=== PATIENT | male | born 1950 | race Caucasian/White ===

== ENCOUNTER 2016-09-07 10:05 | Outpatient (CLI) | payer OTHER ==
--- NOTE | 2016-09-07 14:36 | DIAGNOSTIC IMAGING REPORT ---
PROCEDURE: XR FOOT 3 VIEWS - LEFT INDICATION: RECENT TRAUMA LEFT 2ND TOE, NON HEALING DIABETIC WOUNDS TECHNIQUE: Three views. COMPARISON: None. FINDINGS: Osseous structures and joint spaces are normal. IMPRESSION: 1. Normal left foot.
--- NOTE | 2016-09-07 16:10 | DIAGNOSTIC IMAGING REPORT ---
PROCEDURE: US VENOUS - BILATERAL EXT INDICATION: Nonhealing was bilaterally, initial encounter TECHNIQUE: Duplex sonography of the deep and superficial venous system in both lower extremities was performed. Compression and augmentation techniques were used. The patient was scanned in the upright position. Surveillance of the venous system during Valsalva maneuver when appropriate was performed. COMPARISON: None. FINDINGS: There is venous reflux in the right superficial femoral vein (1.2 seconds, diameter 9 mm). Right greater saphenous vein is competent and measures 7 mm proximally, 5 mm mid and 4 mm distally. There is venous insufficiency in the left mid superficial femoral vein (1.1 seconds, diameter 10 mm) and mid greater saphenous vein (1 second, diameter 5 mm. Left greater saphenous vein measures 8 mm proximally. IMPRESSION: 1. Venous insufficiency of the right superficial femoral vein proximally 2. Venous insufficiency of the mid left superficial femoral and greater saphenous veins.
--- NOTE | 2016-09-07 16:26 | DIAGNOSTIC IMAGING REPORT ---
PROCEDURE: US ART LOWER EXT WITH JESSENIA-B/L INDICATION: NON HEALING WOUNDS TECHNIQUE: Preexercise ABIs were performed. The patient did not exercise to limited range of motion. Color Doppler duplex imaging of the lower extremities was performed. COMPARISON: None. FINDINGS: Cardiac arrhythmia. RIGHT LOWER EXTREMITY: ABIs: Resting ABIs: Posterior tibial and dorsalis pedis 1.1. VESSELS: Mild atherosclerosis. Normal triphasic throughout the right lower extremity except for monophasic wave form of the profunda femoris and biphasic wave form of the posterior tibial artery. RIGHT LOWER EXTREMITY PEAK SYSTOLIC VELOCITIES: External iliac: 62 cm/second. Common femoral artery: 67 cm/second. Profunda femoral artery: 22 cm/second. Proximal superficial femoral artery: 91 cm/second. Mid superficial femoral artery: 58 cm/second. Distal superficial femoral artery: 56 cm/second. Popliteal artery: 63 cm/second. Proximal posterior tibial artery: 59 cm/second. Proximal anterior tibial artery: 103 cm/second. Peroneal artery: 36 cm/second. Distal posterior tibial artery: 32 cm/second. Dorsalis pedis artery: 53 cm/second. LEFT LOWER EXTREMITY: ABIs: Resting ABIs: Posterior tibial and dorsalis pedis 1.1. VESSELS: Mild atherosclerosis. Normal triphasic wave form throughout the left lower extremity except for biphasic wave form of the profunda femoris and proximal SFA. LEFT LOWER EXTREMITY PEAK SYSTOLIC VELOCITIES: External iliac: 109 cm/second. Common femoral artery: 90 cm/second. Profunda femoral artery: 94 cm/second. Proximal superficial femoral artery: 77 cm/second. Mid superficial femoral artery: 76 cm/second. Distal superficial femoral artery: 53 cm/second. Popliteal artery: 68 cm/second. Proximal posterior tibial artery: 109 cm/second. Proximal anterior tibial artery: 63 cm/second. Peroneal artery: 28 cm/second. Distal posterior tibial artery: 77 cm/second. Dorsalis pedis artery: 69 cm/second. IMPRESSION: 1. Cardiac arrhythmia. 2. Right lower extremity: No evidence of resting arterial insufficiency. Mild atherosclerosis without focal stenosis. 3. Left lower extremity: No evidence of resting arterial insufficiency. Mild atherosclerosis without focal stenosis
== END 2016-09-07 23:00 ==
LOC: US SRH 10:05
DX: L97.929 Non-pressure chronic ulcer of unspecified part of left lower leg with unspecified severity (principal); L97.919 Non-pressure chronic ulcer of unspecified part of right lower leg with unspecified severity; I87.2 Venous insufficiency (chronic) (peripheral); I49.9 Cardiac arrhythmia, unspecified

== ENCOUNTER 2017-01-30 08:00 | Emergency (ER) | payer OTHER ==
--- NOTE | 2017-01-30 09:51 | DIAGNOSTIC IMAGING REPORT ---
PROCEDURE: CT HEAD WITHOUT CONTRAST INDICATION: TRAUMA/INJURY TECHNIQUE: Noncontrast axial images with sagittal and coronal reformations. COMPARISON: None. 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 Normal ventricular system and sulci. No evidence of acute intracranial process. Visualized mastoids and sinuses are clear. IMPRESSION: 1. Negative non-enhanced head CT. 2. Findings discussed with Dr. Fracnisco at 09:22 a.m.[facility] Time
--- NOTE | 2017-01-30 09:51 | DIAGNOSTIC IMAGING REPORT ---
PROCEDURE: CT HEAD WITHOUT CONTRAST INDICATION: TRAUMA/INJURY TECHNIQUE: Noncontrast axial images with sagittal and coronal reformations. COMPARISON: None. 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 Normal ventricular system and sulci. No evidence of acute intracranial process. Visualized mastoids and sinuses are clear. IMPRESSION: 1. Negative non-enhanced head CT. 2. Findings discussed with Dr. Francisco at 09:22 a.m.[facility] Time
--- NOTE | 2017-01-30 11:56 | ED NURSING NOTES ---
Clinical Report - Nurses [facility] [address] [place] [address] 01/30/2017 8:01 Patient: MORGAN LOO TRIAGE Triage time 08:04. Acuity: LEVEL 3. Chief Complaint: FALL OFF A CHAIR, onto a hard surface and landed on their knees (Pt denies hitting head and LOC.). Alert. No acute distress. ( PER: EMS. Pt called due to falling from his bed and needed help back up. Pt. states he was down for a few hours. He states his knee "gives out" and that is what happened today. His BS was 73 per EMS on arrival. Pt. given juice and PO glucose. Recheck BS 121 then dropped to 87 so EMS wanted pt to be eval in ED.). SEPSIS SCREEN: Sepsis Screen. Negative (no infection suspected/documented). SARA COMA SCORE: [place] Coma Scale: 15- eyes open spontaneously (4); best verbal response- oriented x 4 (5); best motor response- obeys commands (6). --08:18 Mima Morrison R.N. 08:04 01/30/17. BP: 114/108. HR: 76. RR: 18. O2 saturation: 100%. Pain level now 3/10. --08:18 Mima Morrison R.N. ( Pt. 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 --08:34 Mima Morrison R.N. Weight: 86.1 kg stated. Height/Length: 69 inches Per Patient. BMI: 28.1. --08:10 Mima Morrison R.N. Medications ASA Oral 81 mg, daily. Gabapentin Oral 300 mg, 3x a day as needed. Insulin Regular Human Injection. Lisinopril Oral 5 mg, daily. Metoprolol Succinate Oral 200 mg, twice daily. OxyCODONE HCl Oral 10-30 mg, 4x a day as needed. Zolpidem Tartrate Oral 10 mg, at bedtime as needed. --08:15 Mima Morrison R.N. Warfarin Sodium Oral. Zofran Oral, as needed. --08:17 Mima Morrison R.N. Allergies No Known Drug Allergy. --08:15 Mima Morrison R.N. History Arrived by EMS. Historian: patient. Unaccompanied. Location of injuries: left shoulder and left knee. This occurred today. Treatment CORN CUTTER: None. PAST MEDICAL HX: Immunizations: up-to-date. SOCIAL HX: Never smoker. No alcohol use or drug use. ABUSE ASSESSMENT: Abuse assessment: The patient was asked "Do you feel safe in your home?" and "Has anyone hurt you or threatened to hurt you?". No report of abuse. SELF HARM ASSESSMENT: A self harm assessment was performed. The patient answered "no" to the question "Do you have thoughts of harming or killing yourself?" and "Have you recently had thoughts about harming or killing others?". NUTRITIONAL RISK ASSESSMENT: The nutritional risk assessment revealed no deficiencies. FUNCTIONAL ASSESSMENT: Functional assessment: no impairments noted. LEARNING NEEDS ASSESSMENT: The learning needs assessment revealed no barriers. --08:18 Mima Morrison R.N. PROBLEMS: Coumadin Coagulopathy. Changed Mental Status. Drug Poisoning. Pedal Edema. Fall. Renal Insufficiency. Arthritis. Hyperglycemia. Congestive Heart Failure. CVA - Cerebrovascular Accident. Atrial Fibrillation. Dyspnea. Arrhythmia. Diabetes Mellitus. Hypothyroidism. Hypertension. --08:17 Mima Morrison R.N. ADDITIONAL SURGERIES: Knee Surgery. Shoulder Surgery. --08:17 Mima Morrison R.N. Interventions ID band on patient. Transported via stretcher. --08:18 Mima Morrison R.N. PHYSICAL ASSESSMENT To room via stretcher. GENERAL / NEURO / PSYCH: Alert. Oriented X 4. Appears in no acute distress. RESPIRATORY: Respirations not labored. CVS: Capillary refill less than 2 seconds. SKIN: Skin intact. Skin is warm and dry. --08:18 Mima Morrison R.N. EXTREMITIES: Left shoulder: tenderness. Left knee: tenderness. --08:19 Mima Morrison R.N. NURSING PROGRESS NOTES Patient gowned. Two patient identifiers checked. Call light placed in reach. Side rails up x 2. Bed placed in lowest position. Brakes of bed on. Patient ready for evaluation- chart flagged. --08:19 Mima Morrison R.N. ( BS: 171). --08:33 Mima Morrison R.N. 08:34 01/30/2017 One (1) unsuccessful IV access attempt including the left antecubital space. Applied bandage and manual pressure. --08:34 Mima Morrison R.N. 08:53 01/30/2017 Site #1 started via IV in the right antecubital space with an 20g angiocath, with aseptic technique and good blood return; one attempt. Blood drawn: rainbow set. Saline lock flushed with 10 mL saline (right brachial. ultrasound guidance x30 minutes). --09:03 Adalgisa Mcarthur R.N. Patient returned from radiology by stretcher with tech. --09:17 Mima Morrison R.N. The patient is sleeping. --09:55 Mima Morrison R.N. 09:54 01/30/17. BP: 131/80. HR: 67. RR: 16. O2 saturation: 97%. --09:55 Mima Morrison R.N. ( Pt. give urinal to collect sample.). --10:02 Mima Morrison R.N. ( pt. assisted to BC. Tolerated well.). --10:22 Mima Morrison R.N. ( Pt. requesting water. Water given. Pt. remains on the BC; had BM but no urine at this time.). --10:39 Mima Morrison R.N. 10:30 01/30/2017 Site #1 reassessed. (line infiltrated. Pt. refusing replacement. Provider aware.). --11:06 Mima Morrison R.N. Patient informed about reason for wait and about plan of care. ( Pt. does not voice any concerns at this time.). --11:28 Mima Morrison R.N. 12:06. ( pt. repositioned into bed.). --12:06 Mima Morrison R.N. DISPOSITION / DISCHARGE 12:07 01/30/17. BP: 134/90. HR: 72. RR: 16. O2 saturation: 100%. Pain level now: 10/09. --12:07 Mima Morrison R.N. 12:15. Condition at departure: stable. No learning barriers present. Discharge instructions provided and reviewed with the patient. Reviewed medication(s) side effects, precautions, dosing and course information. Prescription(s) given to the patient. Reviewed referral to family practice for followup. Patient verbalized understanding. Written instructions provided in Tajik. The patient was discharged home and unaccompanied at time of discharge. He left the Emergency Department ambulatory. ( assisted pt. via WC to waiting room. Pt. called friend for ride home.). Medication list reviewed and validated. --12:23 Mima Morrison R.N. Departure time: 1215. --12:23 Mima Morrison R.N. 12:15. --12:24 Mima Morrison R.N. 12:15 01/30/17. Temp: 98.1 F. --12:24 Mima Morrison R.N. Locked/Released at 01/30/2017 12:24 by Mima Morrison R.N.
--- NOTE | 2017-01-30 11:56 | ED NURSING NOTES ---
Clinical Report - Nurses [facility] [address] [place] [address] 01/30/2017 8:01 Patient: MORGAN LOO TRIAGE Triage time 08:04. Acuity: LEVEL 3. Chief Complaint: FALL OFF A CHAIR, onto a hard surface and landed on their knees (Pt denies hitting head and LOC.). Alert. No acute distress. ( PER: EMS. Pt called due to falling from his bed and needed help back up. Pt. states he was down for a few hours. He states his knee "gives out" and that is what happened today. His BS was 73 per EMS on arrival. Pt. given juice and PO glucose. Recheck BS 121 then dropped to 87 so EMS wanted pt to be eval in ED.). SEPSIS SCREEN: Sepsis Screen. Negative (no infection suspected/documented). SARA COMA SCORE: [place] Coma Scale: 15- eyes open spontaneously (4); best verbal response- oriented x 4 (5); best motor response- obeys commands (6). --08:18 Mima Morrison R.N. 08:04 01/30/17. BP: 114/108. HR: 76. RR: 18. O2 saturation: 100%. Pain level now 3/10. --08:18 Mima Morrison R.N. ( Pt. 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 --08:34 Mima Morrison R.N. Weight: 86.1 kg stated. Height/Length: 69 inches Per Patient. BMI: 28.1. --08:10 Mima Morrison R.N. Medications ASA Oral 81 mg, daily. Gabapentin Oral 300 mg, 3x a day as needed. Insulin Regular Human Injection. Lisinopril Oral 5 mg, daily. Metoprolol Succinate Oral 200 mg, twice daily. OxyCODONE HCl Oral 10-30 mg, 4x a day as needed. Zolpidem Tartrate Oral 10 mg, at bedtime as needed. --08:15 Mima Morrison R.N. Warfarin Sodium Oral. Zofran Oral, as needed. --08:17 Mima Morrison R.N. Allergies No Known Drug Allergy. --08:15 Mima Morrison R.N. History Arrived by EMS. Historian: patient. Unaccompanied. Location of injuries: left shoulder and left knee. This occurred today. Treatment SENIOR COMMUNICATIONS SPECIALIST: None. PAST MEDICAL HX: Immunizations: up-to-date. SOCIAL HX: Never smoker. No alcohol use or drug use. ABUSE ASSESSMENT: Abuse assessment: The patient was asked "Do you feel safe in your home?" and "Has anyone hurt you or threatened to hurt you?". No report of abuse. SELF HARM ASSESSMENT: A self harm assessment was performed. The patient answered "no" to the question "Do you have thoughts of harming or killing yourself?" and "Have you recently had thoughts about harming or killing others?". NUTRITIONAL RISK ASSESSMENT: The nutritional risk assessment revealed no deficiencies. FUNCTIONAL ASSESSMENT: Functional assessment: no impairments noted. LEARNING NEEDS ASSESSMENT: The learning needs assessment revealed no barriers. --08:18 Mima Morrison R.N. PROBLEMS: Coumadin Coagulopathy. Changed Mental Status. Drug Poisoning. Pedal Edema. Fall. Renal Insufficiency. Arthritis. Hyperglycemia. Congestive Heart Failure. CVA - Cerebrovascular Accident. Atrial Fibrillation. Dyspnea. Arrhythmia. Diabetes Mellitus. Hypothyroidism. Hypertension. --08:17 Mima Morrison R.N. ADDITIONAL SURGERIES: Knee Surgery. Shoulder Surgery. --08:17 Mima Morrison R.N. Interventions ID band on patient. Transported via stretcher. --08:18 Mima Morrison R.N. PHYSICAL ASSESSMENT To room via stretcher. GENERAL / NEURO / PSYCH: Alert. Oriented X 4. Appears in no acute distress. RESPIRATORY: Respirations not labored. CVS: Capillary refill less than 2 seconds. SKIN: Skin intact. Skin is warm and dry. --08:18 Mima Morrison R.N. EXTREMITIES: Left shoulder: tenderness. Left knee: tenderness. --08:19 Mima Morrison R.N. NURSING PROGRESS NOTES Patient gowned. Two patient identifiers checked. Call light placed in reach. Side rails up x 2. Bed placed in lowest position. Brakes of bed on. Patient ready for evaluation- chart flagged. --08:19 Mima Morrison R.N. ( BS: 171). --08:33 Mima Morrison R.N. 08:34 01/30/2017 One (1) unsuccessful IV access attempt including the left antecubital space. Applied bandage and manual pressure. --08:34 Mima Morrison R.N. 08:53 01/30/2017 Site #1 started via IV in the right antecubital space with an 20g angiocath, with aseptic technique and good blood return; one attempt. Blood drawn: rainbow set. Saline lock flushed with 10 mL saline (right brachial. ultrasound guidance x30 minutes). --09:03 Adalgisa Mcarthur R.N. Patient returned from radiology by stretcher with tech. --09:17 Mima Morrison R.N. The patient is sleeping. --09:55 Mima Morrison R.N. 09:54 01/30/17. BP: 131/80. HR: 67. RR: 16. O2 saturation: 97%. --09:55 Mima Morrison R.N. ( Pt. give urinal to collect sample.). --10:02 Mima Morrison R.N. ( pt. assisted to BC. Tolerated well.). --10:22 Mima Morrison R.N. ( Pt. requesting water. Water given. Pt. remains on the BC; had BM but no urine at this time.). --10:39 Mima Morrison R.N. 10:30 01/30/2017 Site #1 reassessed. (line infiltrated. Pt. refusing replacement. Provider aware.). --11:06 Mima Morrison R.N. Patient informed about reason for wait and about plan of care. ( Pt. does not voice any concerns at this time.). --11:28 Mima Morrison R.N. 12:06. ( pt. repositioned into bed.). --12:06 Mima Morrison R.N. DISPOSITION / DISCHARGE 12:07 01/30/17. BP: 134/90. HR: 72. RR: 16. O2 saturation: 100%. Pain level now: 10/09. --12:07 Mima Morrison R.N. 12:15. Condition at departure: stable. No learning barriers present. Discharge instructions provided and reviewed with the patient. Reviewed medication(s) side effects, precautions, dosing and course information. Prescription(s) given to the patient. Reviewed referral to family practice for followup. Patient verbalized understanding. Written instructions provided in Hebrew. The patient was discharged home and unaccompanied at time of discharge. He left the Emergency Department ambulatory. ( assisted pt. via WC to waiting room. Pt. called friend for ride home.). Medication list reviewed and validated. --12:23 Mima Morrison R.N. Departure time: 1215. --12:23 Mima Morrison R.N. 12:15. --12:24 Mima Morrison R.N. 12:15 01/30/17. Temp: 98.1 F. --12:24 Mima Morrison R.N. Locked/Released at 01/30/2017 12:24 by Mima Morrison R.N.
--- NOTE | 2017-01-30 11:56 | ED ORDER SUMMARY ---
..... Patient: MORGAN LOO OrderSheet [facility] VisitID: [id number] [address] [place] [address] 66y, M Registration Date/Time: 01/30/2017 ORDER SHEET Weight: 86.1 kg (stated) Allergies: No Known Drug Allergy GENERAL ORDERS: CT Head wo Cont Urgent (08:42 01/30/2017 Krista Woody) (Ack 8:56 Marek) (9:30 Kam R.N.) CBC w Diff Urgent (08:42 01/30/2017 Krista Woody) (8:56 KHoerner) CMP Urgent (08:42 01/30/2017 Krista Woody) (8:56 MARIA Moerner) UA-Culture if indicated Urgent (08:42 01/30/2017 Krista Woody) (Ack 8:56 MARIA Moerner) PT with INR Urgent (08:42 01/30/2017 Krista Woody) (8:56 KHoerner) PTT Urgent (08:42 01/30/2017 Krista Woody) (8:56 MARIA Moerner) CPK Urgent (08:42 01/30/2017 Krista Woody) (8:56 KHoerner) MEDICATION ORDERS: IV FLUIDS: IV Saline Lock (08:42 01/30/2017 Krista Woody) (Ack 8:46 Krunal R.NConstantine) (9:03 Angel R.N.) IV NS : initial bolus 1000 mL (1000 mL/hr), then none - for X1 (NOW) (10:08 01/30/2017 Lizette Woody) (Ack 11:04 Krunal R.NConstantine) (Cancelled: Patient Altered [id number] Krunal R.NConstantine) ORDER SHEET NOTES: [Electronically signed by Mima Morrison R.N. (12:24 01/30/2017)] [Electronically signed by Jose Francisco Dr. (13:56 01/31/2017)] [Electronically locked/signed by Mima Morrison R.N. (12:24 01/30/2017)]
--- NOTE | 2017-01-30 11:56 | ED CLINICAL REPORT ---
Clinical Report - Physicians/Mid Levels [facility] [address] [place] [address] 01/30/2017 8:01 Patient: MORGAN LOO Time Seen: 08:30; initial patient contact. Arrived- By ambulance. Historian- patient. HISTORY OF PRESENT ILLNESS Chief Complaint: FALL. Location of injuries- head and left knee. The injury occurred today. Fell out of bed (chronic issue with his knee giving out.). Occurred at home. The patient complains of mild pain. The patient sustained a blow to the head. No neck pain or loss of consciousness. Not dazed. REVIEW OF SYSTEMS The patient complains of pain on weight bearing. No numbness, dizziness, loss of vision, chest pain or difficulty breathing. No weakness, headache, nausea or laceration. All systems otherwise negative, except as recorded above. PAST HISTORY Coumadin Coagulopathy. Changed Mental Status. Drug Poisoning. Pedal Edema. Fall. Renal Insufficiency. Arthritis. Hyperglycemia. Congestive Heart Failure. CVA - Cerebrovascular Accident. Atrial Fibrillation. Dyspnea. Arrhythmia. Diabetes Mellitus. Hypothyroidism. Hypertension. SURGERIES: Knee Surgery. Shoulder Surgery. Medications: Warfarin Sodium Oral. Zofran Oral, as needed. ASA Oral 81 mg, daily. Gabapentin Oral 300 mg, 3x a day as needed. Insulin Regular Human Injection. Lisinopril Oral 5 mg, daily. Metoprolol Succinate Oral 200 mg, twice daily. OxyCODONE HCl Oral 10-30 mg, 4x a day as needed. Zolpidem Tartrate Oral 10 mg, at bedtime as needed. Allergies: No Known Drug Allergy. SOCIAL HISTORY Never smoker. No alcohol use or drug use. ADDITIONAL NOTES The nursing notes have been reviewed. PHYSICAL EXAM Vital Signs: 01/30/2017 08:04 BP: 114/108. HR: 76. RR: 18. O2 saturation: 100%. Have been reviewed. Hypertensive. Heart rate normal. Respiratory rate normal. Temperature normal. Oxygen saturation normal. Appearance: Alert. Oriented X3. No acute distress. Head: Head non-tender. No swelling of head. No Tabor's sign or raccoon eyes. Eyes: Pupils equal, round and reactive to light. EOM intact. ENT: No dental injury. Pharynx normal. Neck: No decreased ROM or muscle spasm in the neck. No pain with movement of head/neck. Painless ROM. Non-tender. No vertebral tenderness. CVS: Heart sounds normal. Rate normal. Rhythm normal. Respiratory: No respiratory distress. Breath sounds normal. Chest nontender. Abdomen: No visible injury. Soft and nontender. Bowel sounds normal. Back: No tenderness. ROM normal. No vertebral point tenderness. Skin: The patient has a single abrasion on the left knee. Extremities: Normal inspection. Pelvis stable. Left knee: mild erythema and tenderness and small abrasion. Neurovascular intact distally. No joint effusion. No swelling, laceration or ecchymosis. No limitation in ROM. Extremities atraumatic. No lower extremity edema. Neuro: Oriented X 3. No motor deficit. LABS, X-RAYS, AND EKG CT Head: (PROCEDURE: CT HEAD WITHOUT CONTRAST INDICATION: TRAUMA/INJURY TECHNIQUE: Noncontrast axial images with sagittal and coronal reformations. COMPARISON: None. 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 Normal ventricular system and sulci. No evidence of acute intracranial process. Visualized mastoids and sinuses are clear. IMPRESSION: 1. Negative non-enhanced head CT.). The study was independently viewed by me and interpreted by the radiologist. The study was discussed with the radiologist (via pacs and phone). Laboratory Tests: CBC w Diff: (ORTEGA: 01/30/2017 08:52) ( MsgRcvd 01/30/2017 09:28) Final results Test Result Flag Units (Reference) WHITE BLOOD COUNT 13.6 H K/uL (4.5-11.5) RED BLOOD COUNT 5.32 M/uL (4.50-5.90) HEMOGLOBIN 14.5 gm/dL (13.5-17.5) HEMATOCRIT 45.0 % (41.0-53.0) MEAN CELL VOLUME 85 fL (80-100) MEAN CORPUSCULAR HGB 27 pg (26-34) MEAN CORPUSCULAR HGB CONC 32 g/dL (31-37) RED CELL DISTRIBUTION WIDTH 19.7 H % (11.6-14.8) PLATELET COUNT 243 K/uL (150-400) NEUTROPHIL % 91.7 H % (50-75) LYMPH % 6.3 L % (25-40) MONO % 2.0 L % (3-14) EOSINOPHIL % 0 % (0-4) BASOPHIL % 0 % (0-2) PT with INR: (ORTEGA: 01/30/2017 08:52) ( WvgRcvd 01/30/2017 09:31) Final results Test Result Flag Units (Reference) INR 2.0 H (0.8-1.2) Low Intensity Therapy: INR 1.5-2.0 PT range 18.5-23.1Mod.Intensity Therapy: INR 2.0-3.0 PT range 23.1-31.5High Intensity Therapy: INR 2.5-3.5 PT range 27.4-35.5High Intensity Therapy 2: INR 3.0-4.0 PT range 31.5-39.3 APTT 37 H SECONDS (24-34) CMP: (ORTEGA: 01/30/2017 08:52) ( WvgRcvd 01/30/2017 09:45) Final results Test Result Flag Units (Reference) GLUCOSE 168 H mg/dL (70-110) BUN 21 H mg/dL (7-18) CREATININE 1.3 mg/dL (0.6-1.3) Estimated GFR 58.88 mL/min Estimated GFR- >60 mL/min Note: Persistent reduction over 3 months in eGFR<60 mL/min/1.73 m2 defines CKD. Patients with eGFR values>=60 mL/min/1.73 m2 may also have CKD if evidence ofpersistent proteinuria. Additional information may be foundat [email or web address]. SODIUM 140 mmol/L (136-145) POTASSIUM 4.5 mmol/L (3.5-5.1) CHLORIDE 102 mmol/L (98-107) CARBON DIOXIDE 31 mmol/L (21-32) CALCIUM 9.2 mg/dL (8.5-10.1) TOTAL PROTEIN 8.5 H g/dL (6.4-8.2) ALBUMIN 3.4 g/dL (3.3-5.0) BILIRUBIN, TOTAL 0.4 mg/dL (0.0-1.0) ALKALINE PHOSPHATASE 129 H U/L (46-116) AST (SGOT) 29 U/L (15-37) ALT (SGPT) 32 U/L (12-78) CPK 139 U/L (24-260) . PROGRESS AND PROCEDURES Course of Care: the patient is a pleasant 66-year-old male presenting for evaluation of fall. Patient reports that he has a problem with his left knee which had given out on him. Patient reports that he had fallen out of bed. No other injuries reported. Patient is alert and oriented. Patient was initially evaluated by Dr. Elizondo. I have taken over the patient's care at the change of shift. I have introduced myself to the patient and perform my own independent examination and history. Agree with the prior physician's assessment and plan. We'll follow up on patient's laboratory studies as well as imaging of the head. The patient's workup was noted for the findings above. No acute bleeds noted on patient's CT scan of the head. Laboratory studies and noted to be unremarkable. After patient was monitored here in the emergency department,was unable to obtain a urine sample. Patient reports that he will try however has been unsuccessful. Be concern for dehydration and IV hydration was ordered. Unfortunately patient's IV had infiltrated. Patient refused another IV. Patient understands the reason for the ID and our only wanting to help him with hydration. Other alternative was oral hydration which she was agreeable to. Patient is able to drink a fair amount of fluids and approximately 1 year. Patient states he feels much better. Patient however declined to offer a urine sample after hydration. Patient states that he feels much better would like to go home. Had a discussion with patient in regards to why urine sample was important and needing to complete his care. Patient states he understands and still wishes to return home. Do not fill can force the patient's stay here in the emergency department. Did not feel patient can be forced to undergo invasive medical procedures and diagnostic testing against his will. Urinalysis was canceled. Patient is nontoxic and in no acute distress. Patient is able to make his own medical decisions. Because the patient is appropriate and with an otherwise negative workup, did not feel patient requires admission to the hospital requ on an unrelated note, patient was talking about how he will be receiving a large Social Security check because of disability since 2010. Disposition: Discharged. Condition: good. CLINICAL IMPRESSION 01/30/2017 09:54 BP: 131/80. HR: 67. RR: 16. O2 saturation: 97%. Blood pressure normal. Oxygen saturation normal. Single superficial abrasion to the left knee. Minor closed head injury. No loss of consciousness. INSTRUCTIONS Warnings: CONTROLLED SUBSTANCE WARNINGS. GENERAL WARNINGS: Return or contact your physician immediately if your condition worsens or changes unexpectedly, if not improving as expected, or if other problems arise. SPECIFICALLY, return if you develop weakness, numbness, tingling, pain or incontinence. fever, vision changes, or other concerns. Your Current Medications: CONTINUE TAKING THE FOLLOWING MEDICATIONS: ASA Oral : 81 mg daily. Gabapentin Oral : 300 mg 3x a day, prn. Insulin Regular Human Injection. Lisinopril Oral : 5 mg daily. Metoprolol Succinate Oral : 200 mg twice daily. OxyCODONE HCl Oral : 10-30 mg 4x a day, prn. Warfarin Sodium Oral. Zofran Oral : prn. Zolpidem Tartrate Oral : 10 mg at bedtime, prn. Prescription Medications: [place] 5 mg / 325 mg tablets: take 1 orally every 6 hours as needed for pain. Dispense ten (10). No refill. Substitution is permissible. Follow-up: Return to the emergency department as needed. Follow up with your doctor in two days. Reason for referral: recheck today's concerns. Summary of care provided to patient via paper. Blood pressure screening was not performed during this visit because the patient has an active diagnosis of hypertension. Understanding of the discharge instructions verbalized by patient. (Electronically signed by Jose Francisco Dr. 01/31/2017 13:56)
--- NOTE | 2017-01-30 11:56 | ED ORDER SUMMARY ---
..... Patient: MORGAN LOO OrderSheet [facility] VisitID: [id number] [address] [place] [address] 66y, M Registration Date/Time: 01/30/2017 ORDER SHEET Weight: 86.1 kg (stated) Allergies: No Known Drug Allergy GENERAL ORDERS: CT Head wo Cont Urgent (08:42 01/30/2017 Krista Woody) (Ack 8:56 Marek) (9:30 Kam R.N.) CBC w Diff Urgent (08:42 01/30/2017 Krista Woody) (8:56 KHoerner) CMP Urgent (08:42 01/30/2017 Krista Woody) (8:56 MARIA Moerner) UA-Culture if indicated Urgent (08:42 01/30/2017 Krista Woody) (Ack 8:56 MARIA Moerner) PT with INR Urgent (08:42 01/30/2017 Krista Woody) (8:56 KHoerner) PTT Urgent (08:42 01/30/2017 Krista Wodoy) (8:56 MARIA Moerner) CPK Urgent (08:42 01/30/2017 Krista Woody) (8:56 KHoerner) MEDICATION ORDERS: IV FLUIDS: IV Saline Lock (08:42 01/30/2017 Krista Woody) (Ack 8:46 Krunal R.NConstantine) (9:03 Angel R.N.) IV NS : initial bolus 1000 mL (1000 mL/hr), then none - for X1 (NOW) (10:08 01/30/2017 Lizette Woody) (Ack 11:04 Krunal R.NConstantine) (Cancelled: Patient Altered [id number] Krunal R.NConstantine) ORDER SHEET NOTES: [Electronically signed by Mima Morrison R.N. (12:24 01/30/2017)] [Electronically signed by Jose Francisco Dr. (13:56 01/31/2017)] [Electronically locked/signed by Mima Morrison R.N. (12:24 01/30/2017)]
--- NOTE | 2017-01-31 13:56 | ED MAR SUMMARY ---
..... Medication Administration Record [facility] [address], [place] [id number] Patient: MORGAN LOO Visit ID: [id number] 66y, M Weight: 86.1 kg Height/Length: 69 in BMI: 28.1 ALLERGIES: No Known Drug Allergy
--- NOTE | 2017-01-31 13:56 | ED MAR SUMMARY ---
..... Medication Administration Record [facility] [address], [place] [id number] Patient: MORGAN LOO Visit ID: [id number] 66y, M Weight: 86.1 kg Height/Length: 69 in BMI: 28.1 ALLERGIES: No Known Drug Allergy
--- NOTE | 2017-01-31 13:56 | ED MED RECONCILIATION SUMMARY ---
Patient: MORGAN LOO Medication Reconciliation Report [facility] VisitID: [id number] [address] [place] [address] 66y, M Registration Date/Time: 01/30/2017 Weight: 86.1 kg Height/Length: 69 in. BMI: 28.1 ALLERGIES: No Known Drug Allergy The patient's Home Medications are listed below: CONTINUE TAKING THE FOLLOWING MEDICATIONS: ASA Oral 81 mg, daily Gabapentin Oral 300 mg, 3x a day Insulin Regular Human Injection Lisinopril Oral 5 mg, daily Metoprolol Succinate Oral 200 mg, twice daily OxyCODONE HCl Oral 10-30 mg, 4x a day Warfarin Sodium Oral Zofran Oral Zolpidem Tartrate Oral 10 mg, at bedtime The source(s) of the original Home Medication information: Not obtained. The following Medications were given to the patient in the Emergency Department: None. The following Medications were prescribed to the patient: [place] 5 mg / 325 mg tablets: take 1 orally every 6 hours as needed for pain. Dispense ten (10). No refill. Substitution is permissible. -- Jose Francisco Dr.
--- NOTE | 2017-01-31 13:56 | ED DISCHARGE INSTRUCTIONS ---
Patient: MORGAN LOO General Instructions [facility] VisitID: [id number] [address] [place] [address] 66y, M Registration Date/Time: 01/30/2017 01/30/2017 09:54 BP: 131/80. HR: 67. RR: 16. O2 saturation: 97%. Blood pressure normal. Oxygen saturation normal. Single superficial abrasion to the left knee. Minor closed head injury. No loss of consciousness. INSTRUCTIONS Warnings: CONTROLLED SUBSTANCE WARNINGS. GENERAL WARNINGS: Return or contact your physician immediately if your condition worsens or changes unexpectedly, if not improving as expected, or if other problems arise. SPECIFICALLY, return if you develop weakness, numbness, tingling, pain or incontinence. fever, vision changes, or other concerns. Your Current Medications: CONTINUE TAKING THE FOLLOWING MEDICATIONS: ASA Oral : 81 mg daily. Gabapentin Oral : 300 mg 3x a day, prn. Insulin Regular Human Injection. Lisinopril Oral : 5 mg daily. Metoprolol Succinate Oral : 200 mg twice daily. OxyCODONE HCl Oral : 10-30 mg 4x a day, prn. Warfarin Sodium Oral. Zofran Oral : prn. Zolpidem Tartrate Oral : 10 mg at bedtime, prn. Prescription Medications: [place] 5 mg / 325 mg tablets: take 1 orally every 6 hours as needed for pain. Dispense ten (10). No refill. Substitution is permissible. Follow-up: Return to the emergency department as needed. Follow up with your doctor in two days. Reason for referral: recheck today's concerns. Summary of care provided to patient via paper. Blood pressure screening was not performed during this visit because the patient has an active diagnosis of hypertension. Understanding of the discharge instructions verbalized by patient. ADDITIONAL INFORMATION Abrasions Abrasions are skin scrapes. Their treatment depends on how large and deep the abrasion is. Home Care: If you were given a bandage, change it once a day. If your bandage sticks to the wound, soak it in warm water until it loosens. Wash the area with soap and water to remove all the cream/ointment. You may do this in a sink, under a tub faucet or shower. Rinse off the soap and pat dry with a clean towel. Reapply cream/ointment according to your doctor's instructions. This will prevent infection and help prevent the bandage from sticking. Cover the wound with a fresh non-stick bandage (Telfa). Repeat steps 1 to 4 daily, or as directed by your doctor. If the bandage becomes wet or dirty, change it as soon as possible. You may use acetaminophen (Tylenol) or ibuprofen (Motrin, Advil) to control pain, unless another pain medicine was prescribed. [ NOTE : If you have chronic liver or kidney disease or ever had a stomach ulcer or GI bleeding, talk with your doctor before using these medicines.] Do not use ibuprofen in children under six months of age. Follow Up with your physician or this facility as directed by our staff. Most skin wounds heal within ten days. However, an infection may occur despite proper treatment. Therefore, look for the early signs of infection listed below. Get Prompt Medical Attention if any of the following occur: Increasing pain in the wound Increasing redness or swelling Pus coming from the wound Fever of 100.4F (38C) or higher, or as directed by your healthcare provider Concussion (No Wake-Up) A concussion happens when you hit your head with enough force to shake up the brain. This may cause you to lose consciousness be "knocked out" - but not always. Depending on how hard you hit your head, it will take from a few hours up to a few days to get better. Sometimes symptoms may last a few months or longer. This is called post-concussion syndrome. At first, you may have a headache, nausea, vomiting, or dizziness. You may also have problems concentrating or remembering things. This is normal. Symptoms should get better as the hours and days go by. Symptoms that get worse could be a sign of a more serious injury. This might be a bruise or bleeding in the brain. Thats why its important to watch for the warning signs listed below. Home care Follow these tips to help care for yourself at home: During the next day (24 hours) someone must stay with you to check for the signs below. If your face or scalp swells, apply an ice pack for 20 minutes every 1 to 2 hours. Do this until the swelling starts to go down. You can make an ice pack by putting ice cubes in a plastic bag and wrapping the bag in a towel. for 20 minutes every 1-2 hours until the swelling starts to go down. You may use acetaminophen to control pain, unless another pain medicine was prescribed. If you have chronic liver or kidney disease, talk with your doctor before using these medicines. Also talk with your doctor if you ever had a stomach ulcer or GI bleeding. For the next 24 hours: Dont drink alcohol or take sedatives or medicines that make you sleepy. Dont drive or operate machinery. Avoid doing anything strenuous. Dont lift or strain. Dont return to sports or any activity that could cause you to hit your head until all symptoms are gone and you have been cleared by your doctor. A second head injury before fully recovering from the first one can lead to serious brain injury. Follow-up care Follow up with your doctor in 1 week, or as directed. Note: A radiologist will review any X-rays or CT scans that were taken. You will be told of any new findings that may affect your care. When to seek medical care Get prompt medical attention if any of these occur: Repeated vomiting Headache or dizziness that is severe or gets worse Unusual drowsiness, or unable to wake up as usual Confusion or change in behavior or speech, or memory loss Blurred vision Convulsion (seizure) Swelling on the scalp or face that gets worse Redness, warmth, or pus from the swollen area Fluid draining from or bleeding from the nose or ears Hydrocodone Bitartrate, Acetaminophen Oral tablet What is this medicine? ACETAMINOPHEN; HYDROCODONE (a set a BRADLEY kera fen; srinivas droe KOE done) is a pain reliever. It is used to treat mild to moderate pain. How should I use this medicine? Take this medicine by mouth. Swallow it with a full glass of water. Follow the directions on the prescription label. If the medicine upsets your stomach, take the medicine with food or milk. Do not take more than you are told to take. Talk to your energy control officer regarding the use of this medicine in children. This medicine is not approved for use in children. What side effects may I notice from receiving this medicine? Side effects that you should report to your doctor or health intensive care ambulance paramedic as soon as possible: allergic reactions like skin rash, itching or hives, swelling of the face, lips, or tongue breathing problems confusion feeling faint or lightheaded, falls stomach pain yellowing of the eyes or skin Side effects that usually do not require medical attention (report to your doctor or health intensive care ambulance paramedic if they continue or are bothersome): nausea, vomiting stomach upset What may interact with this medicine? alcohol antihistamines isoniazid medicines for depression, anxiety, or psychotic disturbances medicines for sleep muscle relaxants naltrexone narcotic medicines (opiates) for pain phenobarbital ritonavir tramadol What if I miss a dose? If you miss a dose, take it as soon as you can. If it is almost time for your next dose, take only that dose. Do not take double or extra doses. Where should I keep my medicine? Keep out of the reach of children. This medicine can be abused. Keep your medicine in a safe place to protect it from theft. Do not share this medicine with anyone. Selling or giving away this medicine is dangerous and against the law. Store at room temperature between 15 and 30 degrees C (59 and 86 degrees F). Protect from light. Keep container tightly closed. Throw away any unused medicine after the expiration date. Discard unused medicine and used packaging carefully. Pets and children can be harmed if they find used or lost packages. What should I tell my health care provider before I take this medicine? They need to know if you have any of these conditions: brain tumor Crohn's disease, inflammatory bowel disease, or ulcerative colitis drink more than 3 alcohol-containing drinks per day drug abuse or addiction head injury heart or circulation problems kidney disease or problems going to the bathroom liver disease lung disease, asthma, or breathing problems an unusual or allergic reaction to acetaminophen, hydrocodone, other opioid analgesics, other medicines, foods, dyes, or preservatives or trying to get breast-feeding What should I watch for while using this medicine? Tell your doctor or health intensive care ambulance paramedic if your pain does not go away, if it gets worse, or if you have new or a different type of pain. You may develop tolerance to the medicine. Tolerance means that you will need a higher dose of the medicine for pain relief. Tolerance is normal and is expected if you take the medicine for a long time. Do not suddenly stop taking your medicine because you may develop a severe reaction. Your body becomes used to the medicine. This does NOT mean you are addicted. Addiction is a behavior related to getting and using a drug for a non-medical reason. If you have pain, you have a medical reason to take pain medicine. Your doctor will tell you how much medicine to take. If your doctor wants you to stop the medicine, the dose will be slowly lowered over time to avoid any side effects. You may get drowsy or dizzy when you first start taking the medicine or change doses. Do not drive, use machinery, or do anything that may be dangerous until you know how the medicine affects you. Stand or sit up slowly. There are different types of narcotic medicines (opiates) for pain. If you take more than one type at the same time, you may have more side effects. Give your health care provider a list of all medicines you use. Your doctor will tell you how much medicine to take. Do not take more medicine than directed. Call emergency for help if you have problems breathing. The medicine will cause constipation. Try to have a bowel movement at least every 2 to 3 days. If you do not have a bowel movement for 3 days, call your doctor or health intensive care ambulance paramedic. Too much acetaminophen can be very dangerous. Do not take Tylenol (acetaminophen) or medicines that contain acetaminophen with this medicine. Many non-prescription medicines contain acetaminophen. Always read the labels carefully. You have been given the following additional information: Abrasion Concussion, No Wake-Up Hydrocodone Bitartrate, Acetaminophen Oral tablet (Electronically signed by Jose Francisco Dr. 01/31/2017 13:56)
--- NOTE | 2017-01-31 13:56 | ED MED RECONCILIATION SUMMARY ---
Patient: MORGAN LOO Medication Reconciliation Report [facility] VisitID: [id number] [address] [place] [address] 66y, M Registration Date/Time: 01/30/2017 Weight: 86.1 kg Height/Length: 69 in. BMI: 28.1 ALLERGIES: No Known Drug Allergy The patient's Home Medications are listed below: CONTINUE TAKING THE FOLLOWING MEDICATIONS: ASA Oral 81 mg, daily Gabapentin Oral 300 mg, 3x a day Insulin Regular Human Injection Lisinopril Oral 5 mg, daily Metoprolol Succinate Oral 200 mg, twice daily OxyCODONE HCl Oral 10-30 mg, 4x a day Warfarin Sodium Oral Zofran Oral Zolpidem Tartrate Oral 10 mg, at bedtime The source(s) of the original Home Medication information: Not obtained. The following Medications were given to the patient in the Emergency Department: None. The following Medications were prescribed to the patient: [place] 5 mg / 325 mg tablets: take 1 orally every 6 hours as needed for pain. Dispense ten (10). No refill. Substitution is permissible. -- Jose Francisco Dr.
== END 2017-01-30 12:15 | disposition home or self-care (01) ==
LOC: ED SRH 08:00
DX: S09.90XA Unspecified injury of head, initial encounter (principal); S80.212A Abrasion, left knee, initial encounter; W06.XXXA Fall from bed, initial encounter; Y93.9 Activity, unspecified; Y99.9 Unspecified external cause status; E11.9 Type 2 diabetes mellitus without complications; I50.9 Heart failure, unspecified; I48.91 Unspecified atrial fibrillation; E07.9 Disorder of thyroid, unspecified; Z86.73 Personal history of transient ischemic attack (TIA), and cerebral infarction without residual deficits; Z79.01 Long term (current) use of anticoagulants
CPT/HCPCS: 81460; 90100; 92610; 94001; 94060; 95059